=== PATIENT | female | born 1975 | race Hispanic/Latino ===

== ENCOUNTER 2023-12-11 13:11 | Emergency (ER) | payer MEDICAID, SELFPAY ==
--- NOTE | ~2023-12-11 | CT_ITS ---
CTA chest PE abdomen pel Ordering provider: Manny Gavin MD History: . Right-sided chest wall pain with right lower abdom . Comparison: None. Technique: CT angiogram chest was performed following timed intravenous injection of contrast. Thin s lice axial images and reformatted coronal images were obtained. Three dimensional reformatted images of the chest were also obtained using a [employer] workstation. Also, CT of the abdomen and pelvis was pe rformed with IV contrast. . Automated exposure control and iterative reconstruction technique were e mployed. The dose-length product was 1006.81 mGy-cm. 100 mL Omnipaque 350 was given IV. FINDINGS: CHEST: --PULMONARY ARTERIES: No pulmonary embolus. --VISUALIZED THORACIC INLET: Normal. --MEDIASTINUM: Aorta/coronary arteries: Mild atheromatous disease. Heart/other: The heart is not enlarged. Heart/other: The heart is not enlarged. Lymph nodes: No mediastinal or hilar adenopathy. --LUNGS: No pulmonary nodules or masses. No infiltrates or effusions. No pneumothorax. Dependent atelectatic c hanges. --MUSCULOSKELETAL: Bones: Normal spine. Superficial soft tissues: The superficial soft tissues are normal. ABDOMEN/PELVIS: --MUSCULOSKELETAL: Superficial soft tissues: The superficial soft tissues are normal. Bilateral inguinal lymph nodes are noted with the largest measures 1.5 cm. Possible Fat-containing umbilical hernia with possible infla mmatory outline versus lipoma. Bones: Normal spine. Bilateral sacroiliacs. --UPPER ABDOMINAL ORGANS: Liver: Fat infiltration. Gallbladder: Normal. Spleen: Normal. Stomach/duodenum: Normal. Pancreas: Normal. Adrenals: Normal. Kidneys: Small cyst in the left kidney upper pole. Small cysts in the right kidney mid and upper pole . --PELVIC ORGANS: The bladder is slightly thickened wall. Evaluation for cystitis advised. No bladder stones. --BOWEL AND MESENTERY: Colon: Mild diverticulosis without diverticulitis sigmoid colon. Postoperative changes in the rectosi gmoid area. Fecal material is loaded in the colon. No evidence of appendicitis. Appendix is most like ly surgically removed. Small Bowel: Normal. No obstruction. Peritoneum/mesentery: No free air or free fluid. No mesenteric lymphadenopathy. Small mesenteric lymp h nodes are noted. --RETROPERITONEUM: Normal aorta. No retroperitoneal lymphadenopathy. Small para-aortic lymph nodes are noted. IMPRESSION: CHEST: 1. No pulmonary embolism. 2. No acute cardiopulmonary pathology. ABDOMEN/PELVIS: 1. No acute abdominal process. No evidence of appendicitis, diverticulitis stone or obstruction. 2. Fat containing area seen near to the umbilicus which may be a lipoma or hernia. Clinical evaluati on advised. 3. Constipation. Reviewed, dictated and finalized at location A. IMPRESSION: CHEST: 1. No pulmonary embolism. 2. No acute cardiopulmonary pathology. ABDOMEN/PELVIS: 1. No acute abdominal process. No evidence of appendicitis, diverticulitis sto ne or obstruction. 2. Fat containing area seen near to the umbilicus which may be a lipoma or her alexis. Clinical evaluation advised. 3. Constipation.
[2023-12-11 13:14] VITALS: BP 166/74; PULSE 85; RESP 20; TEMP 36.4; O2SAT 99
--- NOTE | 2023-12-11 14:20 | ED.ABDPAIN ---
HPI - Abdominal Pain General Chief Complaint: Shortness of Breath/Dyspnea Stated Complaint: abd pain Time Seen by Provider: 12/11/23 13:39 History of Present Illness HPI narrative: 48-year-old female present to the emergency department for evaluation for right lower rib and right upper quadrant pain. Patient does have prior history of uterine and cervical cancer. Patient is being treated [facility]. Patient did complete her medical treatment. Patient does still have follow-up with Oncology. Patient reports worsening pain in the right upper quadrant over the last few days. Patient states pain is worsened with deep inspiration. Patient denies any falls or injuries. Patient states she believes she does have a prior history of a cholecystectomy. Related Data Allergies Allergy/AdvReac Type Severity Reaction Status Date / Time blueberry Allergy Hives Verified 12/11/23 15:16 Review of Systems Review of Systems: All systems reviewed & are unremarkable except as noted in HPI and below Exam Narrative: APPEARANCE: Well appearing, no pain, no distress, well-nourished. HEAD: normocephalic, atraumatic. EYES: PERRLA/EOMI, conjunctivae clear. NOSE: Normal no drainage EARS:TMS clear with good light reflex. THROAT: Pharynx clear, no exudate. NECK: Supple. No adenopathy, no masses. RESPIRATORY: Airway patent, respirations nonlabored. Clear to auscultation bilaterally, no rales, rhonchi, wheezing. CARDIOVASCULAR: Regular rate and rhythm without murmurs rubs or gallops. ABDOMINAL: Soft, nontender, nondistended, normal bowel sounds MUSCULOSKELETAL: Right lower rib tenderness to palpation NEURO: Alert. Cranial nerves II through XII intact. Good gait. Good coordination SKIN: Warm, dry. Normal Color Course Vital Signs Vital signs: Vital Signs Temperature 97.6 F 12/11/23 13:14 Pulse Rate 85 12/11/23 13:14 Respiratory Rate 20 12/11/23 13:14 Blood Pressure 166/74 H 12/11/23 13:14 Pulse Oximetry 99 12/11/23 13:14 Oxygen Delivery Room Air 12/11/23 13:14 Temperature 97.6 F 12/11/23 13:14 Pulse Rate 72 12/11/23 16:22 Respiratory Rate 15 12/11/23 16:22 Blood Pressure 115/47 L 12/11/23 16:22 Pulse Oximetry 100 12/11/23 16:22 Oxygen Delivery Room Air 12/11/23 15:20 MDM - Abdominal Pain MDM Narrative Medical decision making narrative: 48-year-old female presented to the emergency department for evaluation for upper quadrant pain. Patient reports she is status post cholecystectomy. Patient is afebrile with no leukocytosis and a stable hemoglobin of 12.8. Patient has no acute abnormalities on her CMP including a normal AST ALT lipase. UA was negative for infection. CTA was ordered to evaluate for pulmonary embolism due to the patient's underlying history of cancer. CTA was negative for pulmonary embolism. No evidence of underlying pneumonia. Patient was updated the results of the workup was comfortable plan for discharge and close follow-up. Patient is being provided Flexeril for muscle spasm. Patient does describe doing some heavy lifting over the last few days patient may have an occult rib fracture versus a muscle strain. Patient was updated care at home. Differential Diagnosis Differential diagnosis: Likely abdominal pain, acute appendicitis, calculus of kidney, constipation, diverticulitis, pancreatitis, small bowel obstruction and other (Pulmonary embolism, muscle strain, rib fracture) Lab Data Attestation: I reviewed the patient's lab results. 12/11/23 15:04 12/11/23 15:04 Labs: Lab Results 12/11/23 12/11/23 Range/Units 15:04 15:17 WBC 4.9 (4.5-10.0) K/mm3 RBC 5.21 (4.2-5.4) M/mm3 Hgb 12.8 (12.0-15.0) g/dL Hct 40.4 (37.0-47.0) % MCV 77.5 L (80-100) fl MCH 24.6 L (26-34) pg MCHC 31.7 L (32-36) g/dl RDW 14.6 H (11.5-14.5) % Plt Count 180 (150-375) k/mm3 MPV 9.0 (7.4-10.4) fl Immature Gran % (Auto) 0.2 (0-0.5) %
[2023-12-11 15:14] LABS: Basophils Percent Auto 0.4 % (0.2-1.2); Eosinophils Absolute Auto 0.1 K/mm3 (0-0.3); Eosinophils Percent Auto 2.5 % (0-4.4); Hematocrit 40.4 % (37.0-47.0); Hemoglobin 12.8 g/dL (12.0-15.0); Immature Granulocyte Absolute 0.01 K/mm3 (0.00-0.031); Immature Granulocyte Percent A 0.2 % (0-0.5); Lymphocytes Absolute Auto 1.39 K/mm3 (0.9-3.2); Lymphocytes Percent Auto 28.4 % (18.3-44.2); Mean Corpuscular HGB Conc 31.7 g/dl (32-36); Mean Corpuscular Hemoglobin 24.6 pg (26-34); Mean Corpuscular Volume 77.5 fl (80-100); Monocytes Absolute Auto 0.6 K/mm3 (0.1-0.6); Monocytes Percent Auto 12.5 % (2.6-8.5); Neutrophils Absolute Auto 2.7 K/mm3 (1.3-6.7); Platelet Count Result 180 k/mm3 (150-375); Red Blood Count 5.21 M/mm3 (4.2-5.4); Red Cell Distribution Width 14.6 % (11.5-14.5); White Blood Count 4.9 K/mm3 (4.5-10.0)
[2023-12-11] MEDS: KETOROLAC 15 MG/ML VIAL (*BKC) IV PUSH (15:17)
[2023-12-11] MEDS: SODIUM CHLORIDE 0.9% IV 1,000 ML 999 ML IV CONT (15:17)
[2023-12-11] MEDS: ONDANSETRON INJ 4 MG/2 ML VIAL IV PUSH (15:17)
[2023-12-11 15:20] VITALS: BP 139/77; PULSE 77; PULSE 83; RESP 15; O2SAT 100
[2023-12-11 15:23] LABS: Alanine Aminotransferase 32 U/L (6-35); Albumin Level 4.2 g/dL (3.5-5.1); Alkaline Phosphatase 74 U/L (38-126); Anion Gap 6 mmol/L (4-12); Aspartate Amino Transferase 33 U/L (14-36); Bilirubin,Total 0.6 mg/dL (0.2-1.3); Blood Urea Nitrogen 17 mg/dL (7-17); Calcium 9.3 mg/dL (8.4-10.2); Carbon Dioxide 31 mmol/L (22-30); Chloride 99 mmol/L (98-107); Estimated CRCL calculation 100 ml/min; Estimated Glomerular Filt Rate > 60; Glucose 83 mg/dL (65-110); Lipase 55 U/L (23-300); Potassium 3.9 mmol/L (3.4-5.0); Sodium 136 mmol/L (137-145)
[2023-12-11 15:30] LABS: Add Urine Microscopic? YES; Appearance Urine Clear (Clear); Bacteria Urine None Seen /hpf; Bilirubin Urine Negative (Negative); Blood Urine Negative (Negative); Color Urine Yellow (Yellow); Glucose Urine UA Negative (Negative); Ketones Urine Negative (Negative); Leukocyte Esterase Ur 1+ LEU/UL (Negative); Nitrate Urine Negative (Negative); Non Pathogenic Casts 0-2; Protein Urine Negative (Negative); RBC Urine 0-2 /hpf (0-2); Specific Grav Ur 1.016 (1.001-1.035); Squamous Epithelial Cell Urine None Seen /hpf (Few); pH Urine 5.5 (5.0-9.0)
[2023-12-11 16:22] VITALS: BP 115/47; PULSE 72; RESP 15; O2SAT 100
[2023-12-11] MEDS: HYDROmorphone HCL INJ (*CRX) 1 MG/ML SYR IV PUSH (16:31)
== END 2023-12-11 17:42 | disposition home or self-care (01) ==
PROVIDERS: Emergency Provider Emergency Medicine
DX: R10.11 Right upper quadrant pain (principal); K59.00 Constipation, unspecified; Z85.41 Personal history of malignant neoplasm of cervix uteri; Z85.54 Personal history of malignant neoplasm of ureter; Z90.49 Acquired absence of other specified parts of digestive tract
CPT/HCPCS: 36415; 71275; 74177; 80053; 81001; 83690; 85025; 87086; 96361; 96374; 96375; 99284; J1171; J1885; J2405; J7030; Q9967